=== PATIENT | female | born 1980 | race Caucasian/White ===

== ENCOUNTER 2021-11-08 19:53 | Observation (INO) | payer OTHER, MEDICAID, SELFPAY ==
[2021-11-08 20:19] VITALS: BP 176/92; PULSE 125; RESP 18; O2SAT 99
--- NOTE | 2021-11-08 21:06 | DI.RAD.S_ITS ---
PROCEDURE: XR HAND RT MIN 3V INDICATIONS: Pain swelling TECHNIQUE: 3 views of the hand acquired. COMPARISON: None. FINDINGS: Bones: No fractures or dislocations. No discrete bony erosions or periosteal reaction. Carpal bones are normally aligned. No suspicious bony lesions. Soft tissues: There is soft tissue swelling along the dorsal aspect of the 1st digit overlying the interphalangeal joint. No radiopaque foreign bodies. No suspicious soft tissue calcifications. IMPRESSION: 1. No definite radiographic evidence of osteomyelitis. 2. No radiopaque foreign bodies. If clinical concern persists for osteomyelitis or septic arthritis, further evaluation may be obtained with MRI. Dictated by: Faustino Sam M.D. on 11/08/2021 at 22:04 Approved by: Faustino Sam M.D. on 11/08/2021 at 22:09
--- NOTE | 2021-11-08 21:06 | DI.US.S_ITS ---
PROCEDURE: US EXTREMELY NONVASC UPPER RT INDICATIONS: RIGHT AC FOSSA EDEMA, ERYTHEMA TECHNIQUE: Real-time scanning was performed of the right antecubital fossa, with image documentation. COMPARISON: None. FINDINGS: There is a heterogeneous hypoechoic soft tissue region with internal echoes and ill-defined margins. This measures approximately 5.0 x 2.5 x 6.4 cm in extent. There is extensive peripheral vascularity on color Doppler interrogation with internal areas of vascularity also demonstrated. There is some component of posterior acoustic enhancement. IMPRESSION: 1. Heterogeneous hypoechoic soft tissue region with internal echoes as well as peripheral hyperemia and internal vascularity. The findings are compatible with a phlegmon given the extensive heterogeneous internal echoes as well as internal blood flow. Dictated by: Faustino Sam M.D. on 11/08/2021 at 22:28 Approved by: Faustino Sam M.D. on 11/08/2021 at 22:35
--- NOTE | 2021-11-08 21:09 | ED.SKABFB ---
HPI - Skin/Abscess/Foreign Bdy General Chief complaint: Skin/Abscess/Foreign Body Stated complaint: Right thumb infection Time Seen by Provider: 11/08/21 20:57 Mode of arrival: Ambulatory History of Present Illness HPI narrative: Patient here for right thumb swelling redness and right antecubital space swelling erythema edema and pain. 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 Has been under lot of stress recently. She states she was working on a boat for 5 days ago and injured the skin on her right thumb pad. Started had redness and pain and swelling to the thumb. She did try injecting heroin unsuccessfully in the right antecubital space. Two days ago had swelling pain redness to this area as well. Related Data Allergies Allergy/AdvReac Type Severity Reaction Status Date / Time CODEINE Allergy Mild CHILDHOOD Uncoded 11/08/21 23:05 ALLERGY PENICILLIN Allergy Mild Uncoded 11/08/21 23:05 Review of Systems Review of Systems Narrative: GENERAL: Denies chills, fatigue, malaise, fever, sweats. HEENT: Denies sinus pain, ear pain, sore throat RESPIRATORY: Denies dyspnea, cough CARDIOVASCULAR: Denies chest pain, palpitations GASTROINTESTINAL: Denies nausea, vomiting, abdominal pain : Denies dysuria, frequency, hematuria MUSCULOSKELETAL: Positive for muscle or bony pain SKIN: Denies rash, positive for skin lesions NEUROLOGIC: Denies weakness, numbness ROS Unobtainable: All systems reviewed & are unremarkable except as noted in HPI and below Patient History Social History household members: none Smoking Status: Never smoker alcohol intake: former Substance Use Type: heroin Exam Narrative Exam Narrative: GENERAL: in no distress, not toxic not dyspneic HEAD: Normocephalic. EYES: Pupils equal round No scleral icterus. ENT: Mucous membranes moist. NECK: Trachea midline. CARDIOVASCULAR: Regular rate and rhythm without murmurs, is tachycardic RESPIRATORY: Clear to auscultation. Breath sounds equal bilaterally. No wheezes, rales, or rhonchi. GASTROINTESTINAL: Abdomen soft, non-tender EXTREMITIES: No gross deformities. Examination right upper extremity. There is diffuse erythema dorsal aspect of the right thumb. There is ulceration centrally. No red streaking. Tender to touch. At the antecubital space there is large area of induration and tenderness. No palpable abscess. 10 cm in diameter. Is not circumferential. Limited flexion extension due to pain at this site. Limited range of motion to thumb due to pain as well. BACK: No flank tenderness. NEURO: AOx4. SKIN: Warm and dry PSYCH: Not anxious, is cooperative Initial Vital Signs Initial Vital Signs: Vital Signs Pulse Rate 125 H 11/08/21 20:19 Respiratory Rate 18 11/08/21 20:19 Blood Pressure 176/92 H 11/08/21 20:19 Pulse Oximetry 99 11/08/21 20:19 Oxygen Delivery Method 11/08/21 20:19 Course Course Course Narrative: No new issues during course of stay Decision to Admit Date: 11/08/21 Decision to Admit time: 23:06 Orders Ordered: ED Orders 11/08/21 21:06 US extremity nonvasc upper rt Stat XR hand RT min 3V Stat 11/08/21 21:40 CBC Auto Diff [Complete Blood Count AUTO DIFF] Stat CMP [Comprehensive Metabolic Panel] Stat Lactate (Lactic Acid) Stat Test Serum,Qual Stat Procalcitonin Stat 11/08/21 22:10 COVID19 -Nasal RAPID/Pre-Proc Stat 11/08/21 23:15 MRSA (Nasal) PCR Stat 11/08/21 23:16 Blood Culture Stat 11/08/21 23:20 Education, smoking cessation ONGOING Acetaminophen (Acetaminophen 325 Mg Tablet) 650 mg PO Q6HR PRN PRN Reason: Fever/Mild Pain (1-3) Hydrocodone Bitart/Acetaminophen (Hydrocodone/Acet 10/325 Tablet) 1 tab PO Q4HR PRN PRN Reason: Pain, Moderate (4-6) Enoxaparin Sodium (Enoxaparin 40 Mg/0.4 Ml Syringe) 40 mg SUBCUT DAILY [facility] Sodium Chloride (Normal Saline 0.9%) 1,000 mls @ 100 mls/hr IV CONT SHEILA Last Admin: 11/09/21 00:49 Dose: 100 mls/hr Documented By: Vancomycin HCl (Vancomycin) 1,000 mg in 200 mls @ 133 mls/hr IV Q12H SHEILA Last Admin: 11/09/21 00:56 Dose: 133 mls/hr Documented By: Ondansetron HCl (Ondansetron 4 Mg Odt) 4 mg PO Q8HR PRN PRN Reason: Nausea And Vomiting Discontinued Medications Acetaminophen (Acetaminophen 325 Mg Tablet) 975 mg PO NOW ONE Stop: 11/08/21 23:06 Last Admin: 11/08/21 23:21 Dose: 975 mg Documented By: OW Diphtheria/Tetanus/Acell Pertussis (Tet,Diph,Pertuss(Acell),Vac/Pf 0.5 Ml Syringe) 0.5 ml IM .ONCE ONE Stop: 11/08/21 23:08 Last Admin: 11/08/21 23:31 Dose: 0.5 ml Documented By: CLAUS Hydromorphone HCl (Hydromorphone 1 Mg Inj) 1 mg IV NOW ONE Stop: 11/08/21 21:56 Last Admin: 11/08/21 22:00 Dose: 1 mg Documented By: CLAUS Hydromorphone HCl (Hydromorphone 1 Mg Inj) 1 mg IV Q3H ONE Stop: 11/09/21 00:30 Last Admin: 11/09/21 00:48 Dose: 1 mg Documented By: Clindamycin Phosphate (Cleocin) 600 mg in 50 mls @ 50 mls/hr IV NOW ONE Stop: 11/08/21 22:07 Last Infusion: 11/08/21 23:03 Dose: 0 mls/hr Documented By: Admin: 11/08/21 21:48 Dose: 50 mls/hr Documented By: CLAUS Ibuprofen (Ibuprofen 400 Mg Tablet) 800 mg PO NOW ONE Stop: 11/08/21 23:06 Last Admin: 11/08/21 23:20 Dose: 800 mg Documented By: CLAUS Ondansetron HCl (Ondansetron 4 Mg/2 Ml Inj) 4 mg IV NOW ONE Stop: 11/08/21 21:56 Last Admin: 11/08/21 22:00 Dose: 4 mg Documented By: CLAUS Vancomycin HCl (Vancomycin Per Pharmacy) 1 request MISC NOW ONE Stop: 11/08/21 21:06 Vancomycin HCl (Vancomycin Per Pharmacy) 1 request MISC NOW ONE Stop: 11/08/21 23:32 Reevaluation(s) Reevaluation #1: Reviewed results with patient and agrees for admit and IV antibiotics. Time: 23:06 Consultations Consultation #1: Spoke with hospitalist, Evelia Wheeler, agrees for admit Time: 23:17 Vital Signs Vital signs: Vital Signs - 8 hr 11/08/21 20:19 11/08/21 22:30 Pulse Rate 125 H 106 H Respiratory Rate 18 20 Blood Pressure 176/92 H 150/82 H Pulse Oximetry 99 98 Oxygen Delivery Method Room Air Room Air MDM - Skin/Abscess/Foreign Bdy Differential Diagnosis Differential diagnosis: Likely abscess of skin or subcutaneous tissue and cellulitis Lab Data Result diagrams: 11/08/21 21:40 11/08/21 21:40 Labs: Lab Results 11/08/21 11/08/21 11/08/21 Range/Units 21:40 21:40 21:40 WBC 10.5 (4.5-11.0) X10^3/uL RBC 3.78 L (4.0-5.2) X10^6/uL Hgb 11.4 L (12.0-16.0) g/dL Hct 33.2 L (36-46) % MCV 87.7 (80-100) fL MCH 30.2 (26-34) PG MCHC 34.4 (30-36) % RDW 13.3 (11.6-14.8) % Plt Count 291 (150-400) X10^3/uL Neut % (Auto) 79.7 H (50-75) % Lymph % (Auto) 9.2 L (25-40) % [place] % (Auto) 8.1 (3-14) % Eos % (Auto) 2.7 (2-4) % Baso % (Auto) 0.3 (0-2) % Neut # (Auto) 8300 H (7639-7676) /uL Lymph # (Auto) 1000 L (8597-9468) /uL [place] # (Auto) 800 (0-900) /uL Eos # (Auto) 300 (0-450) /uL Baso # (Auto) 0 (0-100) /uL ESR (0-20) MM/HR Sodium 135 L (137-145) mmol/L Potassium 3.6 (3.4-5.1) mmol/L Chloride 100 (98-107) mmol/L Carbon Dioxide 26 (22-32) mmol/L BUN 12 (7-17) mg/dL Creatinine 0.65 (0.52-1.04) mg/dL Estimated GFR > 60 (>60) mL/min BUN/Creatinine Ratio 18.5 (6-22) Glucose 99 (70-100) mg/dL Lactate 0.9 (0.7-2.1) mmol/L Calcium 8.2 L (8.4-10.2) mg/dL Total Bilirubin 0.4 (0.2-1.3) mg/dL AST 35 (14-36) IU/L ALT 29 (<35) IU/L Alkaline Phosphatase 91 (38-126) U/L C-Reactive Protein (<1.0) mg/dL Total Protein 6.8 (6.3-8.2) g/dL Albumin 3.5 (3.5-5.0) g/dL Globulin 3.3 (1.7-4.1) g/dL Albumin/Globulin Ratio 1.1 (1.0-2.8) Procalcitonin 0.14 (<0.5) ng/mL Serum , Qual (Negative) SARS-CoV-2 (PCR) (Negative) 11/08/21 11/08/21 11/08/21 Range/Units 21:40 21:40 21:40 WBC (4.5-11.0) X10^3/uL RBC (4.0-5.2) X10^6/uL Hgb (12.0-16.0) g/dL Hct (36-46) % MCV (80-100) fL MCH (26-34) PG MCHC (30-36) % RDW (11.6-14.8) % Plt Count (150-400) X10^3/uL Neut % (Auto) (50-75) % Lymph % (Auto) (25-40) % [place] % (Auto) (3-14) % Eos % (Auto) (2-4) % Baso % (Auto) (0-2) % Neut # (Auto) (6170-1894) /uL Lymph # (Auto) (7130-5657) /uL [place] # (Auto) (0-900) /uL Eos # (Auto) (0-450) /uL Baso # (Auto) (0-100) /uL ESR 62 H (0-20) MM/HR Sodium (137-145) mmol/L Potassium (3.4-5.1) mmol/L Chloride (98-107) mmol/L Carbon Dioxide (22-32) mmol/L BUN (7-17) mg/dL Creatinine (0.52-1.04) mg/dL Estimated GFR (>60) mL/min BUN/Creatinine Ratio (6-22) Glucose (70-100) mg/dL Lactate (0.7-2.1) mmol/L Calcium (8.4-10.2) mg/dL Total Bilirubin (0.2-1.3) mg/dL AST (14-36) IU/L ALT (<35) IU/L Alkaline Phosphatase (38-126) U/L C-Reactive Protein 19.7 H (<1.0) mg/dL Total Protein (6.3-8.2) g/dL Albumin (3.5-5.0) g/dL Globulin (1.7-4.1) g/dL Albumin/Globulin Ratio (1.0-2.8) Procalcitonin (<0.5) ng/mL Serum , Qual Negative (Negative) SARS-CoV-2 (PCR) (Negative) 11/08/21 Range/Units 22:10 WBC (4.5-11.0) X10^3/uL RBC (4.0-5.2) X10^6/uL Hgb (12.0-16.0) g/dL Hct (36-46) % MCV (80-100) fL MCH (26-34) PG MCHC (30-36) % RDW (11.6-14.8) % Plt Count (150-400) X10^3/uL Neut % (Auto) (50-75) % Lymph % (Auto) (25-40) % [place] % (Auto) (3-14) % Eos % (Auto) (2-4) % Baso % (Auto) (0-2) % Neut # (Auto) (5755-6417) /uL Lymph # (Auto) (3422-4751) /uL [place] # (Auto) (0-900) /uL Eos # (Auto) (0-450) /uL Baso # (Auto) (0-100) /uL ESR (0-20) MM/HR Sodium (137-145) mmol/L Potassium (3.4-5.1) mmol/L Chloride (98-107) mmol/L Carbon Dioxide (22-32) mmol/L BUN (7-17) mg/dL Creatinine (0.52-1.04) mg/dL Estimated GFR (>60) mL/min BUN/Creatinine Ratio (6-22) Glucose (70-100) mg/dL Lactate (0.7-2.1) mmol/L Calcium (8.4-10.2) mg/dL Total Bilirubin (0.2-1.3) mg/dL AST (14-36) IU/L ALT (<35) IU/L Alkaline Phosphatase (38-126) U/L C-Reactive Protein (<1.0) mg/dL Total Protein (6.3-8.2) g/dL Albumin (3.5-5.0) g/dL Globulin (1.7-4.1) g/dL Albumin/Globulin Ratio (1.0-2.8) Procalcitonin (<0.5) ng/mL Serum , Qual (Negative) SARS-CoV-2 (PCR) Negative (Negative) Imaging Data Extremity x-ray #1: My Impression: Spoke with radiologist Dr. Sam, ultrasound does not show abscess. Radiologist's Impression: [place] [address] Ultrasound Report Signed Patient: Violeta Booker MR#: [id number] : 1980 Acct:[id number] Age/Sex: 41 / F Date of Service: 11/08/21 Loc: Accession Number: [id number] ?? Procedure: US extremity nonvasc upper rt Ordering Provider: Talat Nicholas MD PROCEDURE:? US EXTREMELY NONVASC UPPER RT ? INDICATIONS:? RIGHT AC FOSSA EDEMA, ERYTHEMA ? TECHNIQUE:? Real-time scanning was performed of the right antecubital fossa, with image documentation.? ? COMPARISON:? None. ? FINDINGS:? ? There is a heterogeneous hypoechoic soft tissue region with internal echoes and ill-defined margins.? This measures approximately 5.0 x 2.5 x 6.4 cm in extent.? There is extensive peripheral vascularity on color Doppler interrogation with internal areas of vascularity also demonstrated.? There is some component of posterior acoustic enhancement. ? IMPRESSION:? ? 1. Heterogeneous hypoechoic soft tissue region with internal echoes as well as peripheral hyperemia and internal vascularity.? The findings are compatible with a phlegmon given the extensive heterogeneous internal echoes as well as internal blood flow.? ? ? Dictated by: Faustino Sam M.D. on 11/08/2021 at 22:28 ? ? Approved by: Faustino Sam M.D. on 11/08/2021 at 22:35 ? Extremity x-ray #2: Radiologist's Impression: [address] [address] XRay Report Signed Patient: Violeta Booker MR#: [id number] : 1980 Acct:[id number] Age/Sex: 41 / F Date of Service: 11/08/21 Loc: ED Accession Number: [id number] ?? Procedure: XR hand RT min 3V Ordering Provider: Talat Nicholas MD PROCEDURE:? XR HAND RT MIN 3V ? INDICATIONS:? Pain swelling ? TECHNIQUE:? 3 views of the hand acquired.? ? COMPARISON:? None. ? FINDINGS:? ? Bones:? No fractures or dislocations.? No discrete bony erosions or periosteal reaction.? Carpal bones are normally aligned.? No suspicious bony lesions.? ? Soft tissues:? There is soft tissue swelling along the dorsal aspect of the 1st digit overlying the interphalangeal joint.? No radiopaque foreign bodies.? No suspicious soft tissue calcifications.? ? ? IMPRESSION:? ? 1. No definite radiographic evidence of osteomyelitis. ? 2. No radiopaque foreign bodies. ? If clinical concern persists for osteomyelitis or septic arthritis, further evaluation may be obtained with MRI. ? ? Dictated by: Faustino Sam M.D. on 11/08/2021 at 22:04 ? ? Approved by: Faustino Sam M.D. on 11/08/2021 at 22:09 ? MDM Narrative Medical decision making narrative: Appropriate for admission for early intervention with IV antibiotics. Patient has history of sepsis in the past she states. She is uncertain reason why. Discharge Plan Departure Patient Disposition: Admitted as Observation Clinical Impression: Cellulitis Admit Date/Time: 11/08/21 23:20 Admit Provider: Evelia Wheeler
[2021-11-08] MEDS: CLINDAMYCIN 600 MG/50 ML PIGGYBACK 50 MG IV (21:48)
[2021-11-08 21:53] LABS: Add Manual Diff / Slide Review NO; Basophils Absolute Auto 0 /uL (0-100); Basophils Percent Auto 0.3 % (0-2); Eosinophils Absolute Auto 300 /uL (0-450); Eosinophils Percent Auto 2.7 % (2-4); Hematocrit 33.2 % (36-46); Hemoglobin 11.4 g/dL (12.0-16.0); Lymphocytes Absolute Auto 1000 /uL (1100-4500); Lymphocytes Percent Auto 9.2 % (25-40); Mean Corpuscular HGB Conc 34.4 % (30-36); Mean Corpuscular Hemoglobin 30.2 PG (26-34); Mean Corpuscular Volume 87.7 fL (80-100); Monocytes Absolute Auto 800 /uL (0-900); Monocytes Percent Auto 8.1 % (3-14); Neutrophils Absolute Auto 8300 /uL (1500-7000); Neutrophils Percent Auto 79.7 % (50-75); Platelet Count 291 X10^3/uL (150-400); Red Blood Cell Count 3.78 X10^6/uL (4.0-5.2); Red Cell Distribution Width 13.3 % (11.6-14.8); White Blood Cell Count 10.5 X10^3/uL (4.5-11.0)
[2021-11-08] MEDS: HYDROMORPHONE 1 MG INJ IV (22:00)
[2021-11-08] MEDS: ONDANSETRON 4 MG/2 ML INJ IV (22:00)
[2021-11-08 22:01] LABS: Lactate (Lactic Acid) 0.9 mmol/L (0.7-2.1)
[2021-11-08 22:02] LABS: Alanine Aminotransferase 29 IU/L (<35); Albumin 3.5 g/dL (3.5-5.0); Albumin Globulin Ratio 1.1 (1.0-2.8); Alkaline Phosphatase 91 U/L (38-126); Aspartate Aminotransferase 35 IU/L (14-36); BUN Creatinine Ratio 18.5 (6-22); Bilirubin Total 0.4 mg/dL (0.2-1.3); Blood Urea Nitrogen 12 mg/dL (7-17); Calcium 8.2 mg/dL (8.4-10.2); Carbon Dioxide 26 mmol/L (22-32); Chloride 100 mmol/L (98-107); Estimated Glomerular Filt Rate > 60 mL/min (>60); Globulin 3.3 g/dL (1.7-4.1); Glucose 99 mg/dL (70-100); HEMOLYSIS 18 (0-50); Potassium 3.6 mmol/L (3.4-5.1); Sodium 135 mmol/L (137-145); Total Protein 6.8 g/dL (6.3-8.2)
[2021-11-08 22:14] LABS: Pregnancy Test Serum,Qual Negative (Negative)
[2021-11-08 22:18] LABS: Procalcitonin 0.14 ng/mL (<0.5)
[2021-11-08 22:30] VITALS: BP 150/82; PULSE 106; RESP 20; O2SAT 98
[2021-11-08 22:47] LABS: COVID19 -Nasal RAPID Negative (Negative)
[2021-11-08] MEDS: IBUPROFEN 400 MG TABLET 800 MG PO (23:20)
[2021-11-08] MEDS: ACETAMINOPHEN 325 MG TABLET 975 MG PO (23:21)
[2021-11-08] MEDS: TET,DIPH,PERTUSS(ACELL),VAC/PF 0.5 ML SYRINGE IM (23:31)
[2021-11-08 23:35] VITALS: BP 156/76; PULSE 114; RESP 17; TEMP 37.1; O2SAT 99
[2021-11-08 23:49] VITALS: BMI 27.3
[2021-11-09] VITALS (8 sets, daily range): BP systolic 101–152; BP diastolic 55–81; PULSE 83–117; RESP 16–21; TEMP 36.1–37.6; O2SAT 97–100; BMI 30.6
[2021-11-09 00:14] LABS: C-Reactive Protein Quant 19.7 mg/dL (<1.0)
[2021-11-09 00:17] LABS: Erythrocyte Sedimentation Rate 62 MM/HR (0-20)
[2021-11-09] MEDS: HYDROMORPHONE 1 MG INJ IV (00:48)
[2021-11-09] MEDS: SODIUM CHLORIDE 0.9% 1,000 ML 100 ML IV (00:49)
[2021-11-09] MEDS: VANCOMYCIN 1,000 MG/200 ML PIGGYBACK 133 MG IV (00:56)
[2021-11-09 01:43] LABS: Appearance Urine UA CLEAR; Bilirubin Urine UA NEGATIVE (NEGATIVE); Color Urine UA YELLOW; Glucose Urine UA NEGATIVE (Negative); Ketones Urine UA NEGATIVE (NEGATIVE); Leukocyte Esterase Urine UA NEGATIVE (NEGATIVE); Nitrite Urine UA NEGATIVE (Negative); Occult Blood Urine UA 2+ (Negative); Protein Urine UA NEGATIVE (Negative); Urobilinogen Urine UA 0.2 E.U./dL (0.2)
[2021-11-09] MEDS: HYDROCODONE/ACET 10/325 TABLET 1 TAB PO (02:04)
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
[2021-11-09 02:22] LABS: Bacteria Urine Many (>30); Culture Indicated Urine Specimen Cultured; RBC Urine 1-5/HPF (0-5/HPF); Squamous Epithelial Cell Urine 1-5 /HPF (0-5/HPF); WBC Urine 1-5/HPF (0-5/HPF)
--- NOTE | 2021-11-09 02:42 | PC.NURSE ---
Addendum entered by Stacey Amanda R.N. 11/09/21 02:57: Upon arrival to the unit, pt declined having her belonging surged/inventory from this nurse. Original Note: Pt admitted tonight with cellulitis to right arm/hand. Pt alert and oriented. Pt cryind due to her current living situation which was at a [facility]'s senior living here in [facility] which she state she can't longer go in there. Pt independent in the room with ADL'S. IVF started along with IV VANCO. pt resting at the moment.
[2021-11-09] MEDS: ENOXAPARIN 40 MG/0.4 ML SYRINGE SUBCUT (08:50)
[2021-11-09] MEDS: cloNIDine 0.1 MG TABLET PO (08:51)
[2021-11-09] MEDS: lisinopriL 10 MG TABLET PO (08:51)
[2021-11-09] MEDS: VANCOMYCIN 1,000 MG/200 ML PIGGYBACK 200 MG IV (08:52)
[2021-11-09] MEDS: ACETAMINOPHEN 325 MG TABLET 650 MG PO (10:55)
[2021-11-09 12:17] LABS: Ur Creatinine Normal (Normal); Ur Specific Gravity Normal (Normal); Urine Tetrahydrocannabinol Negative (Negative); Urine pH Normal (Normal)
[2021-11-09 12:18] LABS: UR Morphine/Opiate cutoff 300 Positive (Negative); Urine Amphetamines Positive (Negative); Urine Barbiturates Negative (Negative); Urine Benzodiazepines Negative (Negative); Urine Cocaine Negative (Negative); Urine MDMA Negative (Negative); Urine Methadone Negative (Negative); Urine Methamphetamines Positive (Negative); Urine Oxycodone Positive (Negative); Urine Phencyclidine Negative (Negative); Urine Tricyclic Antidepressant Negative (Negative)
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
--- NOTE | 2021-11-09 13:14 | PC.NURSE ---
pt very sleepy falls alseep in the middle of conversation. She asked for pain meds, I gave her tylenol. around 1300 patient was in the bathroom with her backpack. door locked. We asked if she could hand us her backpack. She would not open the door. two more nurses came in the room and she finally handed her backpack. Drug Paraphernalia were found. patient asked to go AMA. Script given. educated patient on the consequences with going AMA. IV removed, Tele removed.
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
--- NOTE | 2021-11-17 13:06 | PC.NURSE ---
Late Entry: Vancomycin infusion initiated at 11/09 at 00:56, complete at 2:27.
== END 2021-11-09 13:05 | disposition left against medical advice (07) ==
LOC: ED 23:09 → AC 23:21
PROVIDERS: Student in an Organized Health Care Education/Training Program; Admitting Provider Nurse Practitioner Family; Emergency Provider Emergency Medicine; Visit Provider Nurse Practitioner Family
DX: L03.113 Cellulitis of right upper limb (principal); Z53.29 Procedure and treatment not carried out because of patient's decision for other reasons; I10 Essential (primary) hypertension; Z69.11 Encounter for mental health services for victim of spousal or partner abuse; Z59.01 Sheltered homelessness; F11.10 Opioid abuse, uncomplicated; F15.10 Other stimulant abuse, uncomplicated; E66.3 Overweight; Z68.30 Body mass index [BMI] 30.0-30.9, adult; Z20.822 Contact with and (suspected) exposure to COVID-19
CPT/HCPCS: 36415; 73130; 76882; 80053; 80305; 81001; 83605; 84145; 84703; 85025; 85651; 86140; 87040; 87086; 87635; 87797; 90471; 96365; 96366; 96367; 96372; 96375; 96376; 99284; C9803; G0378; 90715; J1170; J1650; J2405